=== PATIENT | male | born 1990 | race Caucasian/White ===

== ENCOUNTER → 2023-10-13 | Outpatient (CLI) | payer OTHER, SELFPAY ==
--- NOTE | 2023-10-13 14:44 | CT_ITS ---
STUDY: CT FACIAL BONES WITHOUT CONTRAST REASON FOR EXAM: Male, 32 years old. CHRONIC SINUSITIS RADIATION DOSAGE (If Supplied By Facility): CTDIvol = ( 33.06 ) mGy, DLP = ( 800.79 ) mGycm TECHNIQUE: The patient was scanned in a multi detector CT scanner. Sagittal and coronal images were reconstructed. Individualized dose optimization techniques were used for this CT. COMPARISON: None. FINDINGS: Normal soft tissue structures. Normal orbital barber and orbital contents. Mild nasal septal deviation towards the right side of the midline. Normal facial bones. There is no demonstrated fracture. Nodular mucosal thickening of the maxillary sinus bilaterally slightly more prominent on the left side. These may represent either tiny polyps or retention cysts. The largest nodule in the left maxillary sinus measures 1 cm. Mild degree of mucosal thickening of the ethmoid sinuses bilaterally. CT/Sinus/Facial Bone IMPRESSION: Tiny nodular densities in both maxillary sinuses as well as mucosal thickening of the ethmoid sinuses. Electronically Signed: Lasha Parra MD at 16:09 EDT ,
== END | disposition home or self-care (01) ==
PROVIDERS: PCP Family Medicine; Referring Provider Otolaryngology; Visit Provider Otolaryngology
DX: J32.9 Chronic sinusitis, unspecified (principal)
CPT/HCPCS: 70486

== ENCOUNTER → 2024-03-11 | Outpatient (CLI) | payer OTHER, SELFPAY ==
--- NOTE | 2024-03-11 08:35 | EKG12_ITS ---
Test Reason : PRE OP Blood Pressure : / mmHG Vent. Rate : 066 BPM Atrial Rate : 066 BPM P-R Int : 154 ms QRS Dur : 104 ms QT Int : 394 ms P-R-T Axes : 021 016 016 degrees QTc Int : 413 ms Normal sinus rhythm Normal ECG Confirmed by Grzegorz Lawton ([id number]), video effects editor TALHA LU ([id number]) on 03/11/2024 10:24:09 AM Referred By: Joel Gibbs Confirmed By:Grzegorz Lawton
== END | disposition home or self-care (01) ==
PROVIDERS: PCP Family Medicine; Referring Provider Otolaryngology; Visit Provider Otolaryngology
DX: Z01.810 Encounter for preprocedural cardiovascular examination (principal)
CPT/HCPCS: 93005